=== PATIENT | male | born 1990 | race Caucasian/White ===

== ENCOUNTER 2020-09-15 15:42 | Outpatient (REF) | payer MEDICAID, SELFPAY | END 2020-09-15 16:02 | LOC: NCHCN 15:42 | PROVIDERS: PCP Internal Medicine; Visit Provider Internal Medicine | DX: M00.841 Arthritis due to other bacteria, right hand (principal) | CPT/HCPCS: 87070; 87205 ==

== ENCOUNTER 2020-12-31 18:27 | Outpatient (REF) | payer MEDICAID, SELFPAY ==
[2020-12-31 20:40] LABS: HCT 39.3 % (40.0-50.0); HGB 13.8 g/dL (13.5-17.5); MCH 31.7 pg (27.0-33.0); MCHC 35.1 % (32.0-36.0); MCV 90.1 fL (80-95); MPV 8.9 fL (8.0-11.0); Platelet Count 269 10^3/uL (130-400); RBC 4.36 10^6/uL (4.36-5.78); RDW 11.9 % (11.8-14.1); WBC 5.09 10^3/uL (4.4-10.8)
[2020-12-31 21:00] LABS: ALT 20 U/L (16-63); AST 15 U/L (15-37); Albumin 3.9 g/dL (3.4-5.0); Alkaline Phosphatase 119 U/L (46-116); Anion Gap 5.7 mmol/L (3-11); BUN 12 mg/dL (7-18); Bilirubin, Total 0.6 mg/dL (0.2-1.0); C-Reactive Protein 0.69 mg/dL (0.0-0.3); CO2 33.3 mmol/L (21.0-32.0); CREATININE 1.1 mg/dL (0.70-1.30); Calcium 9.5 mg/dL (8.5-10.1); Chloride 100 mmol/L (98-107); Glucose 97 mg/dL (74-106); Potassium 4.2 mmol/L (3.5-5.1); Sodium 139 mmol/L (136-145); Total Protein 7.1 g/dL (6.4-8.2)
[2021-01-03 14:02] LABS: Tissue Transglutaminase Ab IgA <1.2 U/mL; Tissue Transglutaminase Ab IgG 3.5 U/mL
== END 2020-12-31 18:28 | disposition home or self-care (01) ==
LOC: NCHCN 18:27
PROVIDERS: PCP Internal Medicine; Visit Provider Internal Medicine
DX: K29.70 Gastritis, unspecified, without bleeding (principal); F10.21 Alcohol dependence, in remission
CPT/HCPCS: 80053; 85027; 83516; 86140

== ENCOUNTER 2021-04-21 18:30 | Outpatient (REF) | payer MEDICAID, SELFPAY ==
[2021-04-21 19:01] LABS: Abs Immature Grans 0.01 10^3/uL (0.0-0.06); Absolute Basophil Count 0.02 10^3/uL (0.0-0.2); Absolute Eosinophil Count 0.06 10^3/uL (0.0-0.7); Absolute Lymphocyte Count 1.19 10^3/uL (1.2-3.4); Absolute Monocyte Count 0.55 10^3/uL (0.1-0.8); Basophils % 0.4; Eosinophils % 1.2; HCT 39.6 % (40.0-50.0); HGB 13.6 g/dL (13.5-17.5); Immature Grans % 0.2; Lymphocytes % 24.6; MCH 31.6 pg (27.0-33.0); MCHC 34.3 % (32.0-36.0); MCV 92.1 fL (80-95); MPV 8.8 fL (8.0-11.0); Monocytes % 11.4; Neutrophils % 62.2; Nucleated RBC 0 %; Platelet Count 291 10^3/uL (130-400); RDW 11.9 % (11.8-14.1); RDW-SD 40.1 fL; WBC 4.83 10^3/uL (4.4-10.8)
[2021-04-21 19:14] LABS: ALT 22 U/L (16-63); AST 14 U/L (15-37); Albumin 3.9 g/dL (3.4-5.0); Alkaline Phosphatase 115 U/L (46-116); BUN 12 mg/dL (7-18); Bilirubin, Total 0.6 mg/dL (0.2-1.0); Calcium 9.4 mg/dL (8.5-10.1); Chloride 103 mmol/L (98-107); Glucose 115 mg/dL (74-106); Potassium 3.7 mmol/L (3.5-5.1); Sodium 143 mmol/L (136-145); Total Protein 7.2 g/dL (6.4-8.2)
== END 2021-04-21 18:31 | disposition home or self-care (01) ==
LOC: NCHCN 18:30
PROVIDERS: PCP Internal Medicine; Visit Provider Nurse Practitioner Family
DX: K29.70 Gastritis, unspecified, without bleeding (principal); K92.0 Hematemesis
CPT/HCPCS: 80053; 85025